=== PATIENT | male | born 1975 | race Caucasian/White ===

== ENCOUNTER 2024-04-29 20:03 | Emergency (ER) | payer MEDICAID ==
[~2024-04-29] VITALS: Ht 177.8 cm; Wt 106.0 kg
[2024-04-29 20:23] VITALS: O2SAT 99
[2024-04-29] MEDS: HYDROCODONE/ACETAMINOPHEN 5/325MG TABLET PO STA (21:30)
[2024-04-29 21:42] LABS: BASOPHILS % 0.7 % (0.0-2.0); EOSINOPHILS % 1.5 % (0.0-5.0); HEMOGLOBIN. 15.2 g/dL (14.0-18.0); LYMPHOCYTES % 12.8 % (20.0-50.0); MEAN CORPUSCULAR HEMOGLOBIN 29.2 pg (28.0-32.0); MEAN CORPUSCULAR HGB CONC 33.7 g/dL (31.0-37.0); MEAN CORPUSCULAR VOLUME 86.4 fL (80.0-94.0); MEAN PLATELET VOLUME 9.7 fl (7.4-10.4); PLATELET 220 x1000/uL (130-400); RED BLOOD CELL COUNT 5.21 mill/uL (4.7-6.1); RED CELL DISTRIBUTION WIDTH 15.2 % (11.6-14.6); WHITE BLOOD COUNT 9.4 x1000/uL (4.5-11.0)
[2024-04-29 21:50] LABS: CHLORIDE 109 mEq/L (98-107); POTASSIUM 3.9 mEq/L (3.5-5.1); SODIUM 144 mEq/L (136-145)
[2024-04-29 21:51] LABS: CARBON DIOXIDE 28 mEq/L (21-32)
[2024-04-29 21:52] LABS: CALCIUM 8.8 mg/dL (8.7-10.4)
[2024-04-29 21:56] LABS: CREATININE 1.2 mg/dL (0.6-1.3); GLUCOSE 114 mg/dL (70-105); UREA NITROGEN BLOOD 15 mg/dL (9-23)
[2024-04-29] MEDS ORDERED: NAPR-1486 MT (22:47)
[2024-04-29 22:57] VITALS: BP 151/92; PULSE 86; RESP 17; TEMP 36.9; O2SAT 97
[2024-04-30] MEDS ORDERED: IOHEXOL-300 100 ML BOTTLE ONE (00:07)
== END 2024-04-29 23:10 | disposition home or self-care (01) ==
LOC: ER 20:15
DX: S30.1XXA Contusion of abdominal wall, initial encounter (principal); Z79.1 Long term (current) use of non-steroidal anti-inflammatories (NSAID); V43.52XA Car driver injured in collision with other type car in traffic accident, initial encounter; Y93.89 Activity, other specified; Y92.89 Other specified places as the place of occurrence of the external cause; Y99.8 Other external cause status
CPT/HCPCS: 99285; 71260; 80048; 85025; 36415; 73562; 73590; 74177; Q9967

== ENCOUNTER 2024-06-17 19:14 | Emergency (ER) | payer MEDICAID, OTHER ==
[~2024-06-17] VITALS: Ht 177.8 cm; Wt 91.0 kg
[~2024-06-17 19:14] MED LIST: NAPR-1486 MT
[2024-06-17] MEDS ORDERED: MANNITOL 20% (20GM/100ML) BAG 500ML PREMIX IV NR (22:00)
[2024-06-17] MEDS: DEXAMETHASONE 10 MG/ML VIAL IV ONE (22:17)
[2024-06-17] MEDS: LEVETIRACETAM 1000MG PREMIX 100 ML IV ONE (22:17)
[2024-06-17] MEDS: SODIUM CHLORIDE 0.9% 1,000 ML IV ONE (22:24)
[2024-06-17] MEDS: NICARDIPINE 40MG/200ML PREMIX 200 ML IV STA (22:59)
[2024-06-17 23:06] LABS: BASOPHILS % 0.2 % (0.0-2.0); EOSINOPHILS % 0.2 % (0.0-5.0); HEMATOCRIT. 33.5 % (42.0-52.0); HEMOGLOBIN. 10.9 g/dL (14.0-18.0); LYMPHOCYTES % 8.3 % (20.0-50.0); MEAN CORPUSCULAR HEMOGLOBIN 27.9 pg (28.0-32.0); MEAN CORPUSCULAR HGB CONC 32.6 g/dL (31.0-37.0); MEAN CORPUSCULAR VOLUME 85.6 fL (80.0-94.0); MEAN PLATELET VOLUME 9.3 fl (7.4-10.4); MONOCYTES % 11.3 % (2.0-8.0); PLATELET 168 x1000/uL (130-400); RED BLOOD CELL COUNT 3.91 mill/uL (4.7-6.1); RED CELL DISTRIBUTION WIDTH 14.6 % (11.6-14.6); WHITE BLOOD COUNT 7.8 x1000/uL (4.5-11.0)
[2024-06-17 23:15] LABS: PROTHROMBIN TIME 10.8 sec (9.6-11.0)
[2024-06-17 23:17] LABS: CHLORIDE 108 mEq/L (98-107); POTASSIUM 3.9 mEq/L (3.5-5.1); SODIUM 142 mEq/L (136-145)
[2024-06-17 23:18] LABS: CARBON DIOXIDE 28 mEq/L (21-32)
[2024-06-17] MEDS: MANNITOL 20% 250 ML IV NR (23:18)
[2024-06-17 23:23] LABS: CREATININE 0.8 mg/dL (0.6-1.3)
[2024-06-17 23:24] LABS: ETHANOL BLOOD < 10 mg/dL (<10); GLUCOSE 122 mg/dL (70-105); TROPONIN I HIGH SENSITIVITY 6 ng/L (3.0-53); UREA NITROGEN BLOOD 16 mg/dL (9-23)
[2024-06-17] MEDS: PROPOFOL 10MG/ML 100ML 100 ML IV ONE (23:34)
[2024-06-17] MEDS: ROCURONIUM BROMIDE 10MG/ML VIAL 5ML IV ONE (23:37)
[2024-06-17] MEDS: ETOMIDATE 2MG/ML 10ML VIAL IV ONE (23:37)
[2024-06-17] MEDS ORDERED: MIDAZOLAM 100MG/100ML PMX 100 ML IV STA (23:45)
[2024-06-17] MEDS: LABETALOL 5MG/ML 4ML INJ IV ONE (23:55)
[2024-06-17] MEDS: MIDAZOLAM 100MG/100ML PMX 100 ML IV NR (23:58)
[2024-06-18 00:02] VITALS: PULSE 113; TEMP 37; O2SAT 99
[2024-06-18 00:24] VITALS: BP 152/87; RESP 28; O2SAT 99
[2024-06-18] MEDS: PROPOFOL 10MG/ML 100ML 100 ML IV ONE (00:24)
== END 2024-06-18 00:45 | disposition short-term general hospital (02) ==
LOC: ER 19:14
DX: I62.1 Nontraumatic extradural hemorrhage (principal); R41.82 Altered mental status, unspecified; Z79.52 Long term (current) use of systemic steroids; Z79.1 Long term (current) use of non-steroidal anti-inflammatories (NSAID); Z79.899 Other long term (current) drug therapy; W19.XXXA Unspecified fall, initial encounter; Y93.89 Activity, other specified; Y92.89 Other specified places as the place of occurrence of the external cause; Y99.8 Other external cause status
CPT/HCPCS: 80048; 80320; 83605; 85025; 85610; 84484; 36415; 71045; 70450; 93005; 31500; 96367; 96368; 96365; 96375; 99291; Z7610; J1953; J1100; J3490 ×2; J2250; J2704 ×2; J7030; G0480